=== PATIENT | female | born 2000 | race Caucasian/White ===

== ENCOUNTER 2024-03-23 12:33 | Outpatient (REF) | payer MEDICAID, SELFPAY ==
[2024-03-23 14:00] LABS: Anion Gap 12 (12-20); Blood Urea Nitrogen 17 mg/dL (9-16); Calcium 9.1 mg/dL (8.4-10.2); Carbon Dioxide 27 mmol/L (22-29); Chloride 105 mmol/L (96-108); Estimated Glomerular Filt Rate > 60; Glucose Random 91 mg/dL (60-115); Potassium 3.8 mmol/L (3.3-5.1); Sodium 140 mmol/L (135-145)
[2024-03-23 14:20] LABS: Free T4 (Free Thyroxine) 0.57 ng/dL (0.71-1.85); T4 Thyroxine 3.2 ug/dL (4.5-12.0); Thyroid Stimulating Hormone > 100.00 uIU/mL (0.32-4.0)
[2024-03-24 09:38] LABS: Triiodothyronine T3 Free 2.4 pg/mL (2.3-4.2); Triiodothyronine T3 Total 86 ng/dL (76-181)
== END 2024-03-23 12:34 | disposition home or self-care (01) ==
LOC: HO.HHCL 12:33
PROVIDERS: Visit Provider Internal Medicine
DX: E03.9 Hypothyroidism, unspecified (principal); R73.01 Impaired fasting glucose; E66.813 Obesity, class 3; Z68.42 Body mass index [BMI] 45.0-49.9, adult
CPT/HCPCS: 36415; 80048; 84436; 84439; 84443; 84480; 84481

== ENCOUNTER 2024-05-09 11:02 | Outpatient (REF) | payer MEDICAID, SELFPAY ==
--- OUTSIDE RECORDS SUMMARY | 2024-05-09 12:29 | XMS_ITS | Encounter Summary ---
Author Organization [employer] Address [address] [facility] 7t [place] [address] Care Team Providers Care Licensed Insurance Sales Agent Name Role Phone Oralia Martinez MD Primary Care Provider + Encounter Details Date Type Department Care Team (Latest Contact Info) Description 05/09/2024 Travel Social History Tobacco Use Types Packs/Day Years Used Date Smoking Tobacco: Never Passive Smoke Exposure: Never Smokeless Tobacco: Never Alcohol Use Standard Drinks/Week Comments Never 0 (1 standard drink = 0.6 oz pur e alcohol) Housing Stability Answer Date Recorded What is your housing situation today? I have ian flaherty 05/09/[address] you li ve. Do you have problems with any of the following? None of the above 05/09/2024 Food Insecurity Answer Date Recorded Within the past 12 months, y ou worried that your food would run out before you got money to buy more: Never True 05/09/2024 Within the past 12 months,th e food you bought just didn't last and you didn't have enough money to get more: Never True 01/2025 Transportation Answer Date Recorded In the past 12 months, has l ack of transportation kept you from medical appts, meetings, work or from getting things needed for daily living? No 05/09/2024 Utilities Answer Date Recorded In the past 12 months, has t he electric, gas, oil or water company threatened to shut off services in your home? No 05/09/2024 Depression Answer Date Recorded Patient Health Questionnaire-2 Score 0 05/09/2024 Internet Access Answer Date Recorded Internet Access Q1 No 05/09/2024 Internet Access Q2 I do not want or need it 04/29 Comments No Sex and Gender Information Value Date Recorded Sex Assigned at Female 01/26/2022 10:16 AM EDT Legal Sex Female 10:16 AM EDT Gender Identity Female 01/26/2022 10:16 AM EDT Sexual Orientation Bisexual 01/26/2022 10 :16 AM EDT documented as of this encounter Plan of Treatment Not on file documented as of this encounter Visit Diagnoses Not on filedocumented in this encounter Care Teams Licensed Insurance Sales Agent Relationship Specialty Start Date End Date Oralia Martinez MD [address] [place] [phone] PCP - General Family Medicine 04/11/18 documented as of this encounter
--- OUTSIDE RECORDS SUMMARY | 2024-05-09 12:29 | XMS_ITS | Clinical Summary ---
Author Organization [facility] ity Address [id number] [place] [phone] Care Team Providers Care Property And Casualty Insurance Agent Name Role Phone Unavailable Primary Care Provider Unavailabl e Social History Tobacco Use Types Packs/Day Years Used Date Smoking Tobacco: Never Assessed Comments Unknown Sex and Gender Information Value Date Recorded Sex Assigned at Not on file Legal Sex Female 4:18 AM EST Gender Identity Not on file Sexual Orientation Not on file Plan of Treatment Health Maintenance Due Date Last Done Comments Gonorrhea/Chlamydia Screening 1999 DTaP,Tdap,and Td Vaccines (1 - Tdap) 07/17/2006 HPV Vaccines (1 - 3-dose series) 07/17/2014 Hepatitis B Vaccines (1 of 3 - 19+ 3-dose series) 07/17/2018 Cervical Cancer Screening: P ap Smear 07/17/2020 Depression Screening 03/01/2022 HIV Screening 03/01/2022 Hepatitis C Screening 03/01/2022 Social Influencers of Health Screening 03/01/2022 COVID-19 Vaccine ( - 2023-2 5 season) 2023 Influenza Vaccine (#1) 2023 HIB Vaccines Aged Out No longer eligi ble based on patient's age to complete this topic Hepatitis A Vaccines Aged Out No long er eligible based on patient's age to complete this topic IPV Vaccines Aged Out No longer eligi ble based on patient's age to complete this topic MMR Vaccines Aged Out No longer eligi ble based on patient's age to complete this topic Meningococcal ACWY Vaccine Aged Out N o longer eligible based on patient's age to complete this topic Meningococcal B Vacine Aged Out No lo nger eligible based on patient's age to complete this topic Pneumococcal Vaccine: Pediat rics (0 to 5 Years) and At-Risk Patients (6 to 64 Years) Aged Out No longer eligible b ased on patient's age to complete this topic RSV Immunization Patients Un marcus 20 months Aged Out No longer eligible b ased on patient's age to complete this topic Varicella Vaccines Aged Out No longer eligible based on patient's age to complete this topic
--- OUTSIDE RECORDS SUMMARY | 2024-05-09 12:29 | XMS_ITS | Encounter Summary ---
Author Organization [employer] Address [address] [facility] [address], [place] [address] Care Team Providers Care Grouter Helper Name Role Phone Oralia Martinez MD Primary Care Provider + Reason for Visit * Reason Comments Cough Diarrhea Sore Throat Fever Encounter Details Date Type Department Care Team ([facility] st Contact Info) Description 04/12/2024 2:40 PM EST Office Visit [facility] [address] [place] [phone] rOalia Martinez MD [address] [place], [place] [phone] COVID-19 (Primary Dx); Acute pharyngitis due to other specified organisms Social History Tobacco Use Types Packs/Day Years Used Date Smoking Tobacco: Never Passive Smoke Exposure: Never Smokeless Tobacco: Never Alcohol Use Standard Drinks/Week Comments Never 0 (1 standard drink = 0.6 oz pur e alcohol) Housing Stability Answer Date Recorded What is your housing situation today? I have ian flaherty 04/22/[address] you li ve. Do you have problems with any of the following? None of the above 04/22/2023 Food Insecurity Answer Date Recorded Within the past 12 months, y ou worried that your food would run out before you got money to buy more: Never True 04/22/2023 Within the past 12 months,th e food you bought just didn't last and you didn't have enough money to get more: Never True Transportation Answer Date Recorded In the past 12 months, has l ack of transportation kept you from medical appts, meetings, work or from getting things needed for daily living? No 04/22/2023 Utilities Answer Date Recorded In the past 12 months, has t he electric, gas, oil or water company threatened to shut off services in your home? No 04/22/2023 Comments No Sex and Gender Information Value Date Recorded Sex Assigned at Female 01/26/2022 10:16 AM EDT Legal Sex Female 10:16 AM EDT Gender Identity Female 01/26/2022 10:16 AM EDT Sexual Orientation Bisexual 01/26/2022 10 :16 AM EDT documented as of this encounter Last Filed Vital Signs Vital Sign Reading Time Taken Comments Blood Pressure 105/65 04/12/2024 12:33 PM EST Pulse 90 04/12/2024 12:33 PM EST Temperature 36.9 ??C (98.4 ??F) 04/12/2024 12:[address] Respiratory Rate 18 04/12/2024 12:33 PM EST Oxygen Saturation 97% 04/12/2024 12:33 PM EST RA Inhaled Oxygen Concentration - - Weight 106 kg (234 lb 3.2 oz) 04/12/2024 12:33 P M EST Height 157.5 cm (5' 2 ) 04/12/2024 12:33 PM EST Body Mass Index 42.84 04/12/2024 12:33 PM EST documented in this encounter Progress Notes * Jyoti López RN - 04/12/2024 2:40 PM EST Pt presents to Walk In reporting cough, ST, diarrhea and fevers x2 days, sweating yesterday. Pt reports temperatures yesterday taken 104, 103.3 down to 99 temporally. Pt reports she only took mucinexyesterday. Pt reports she has not taken temperature today, woke up and came to Walk In Center. Pt speaking in full sentences, no respiratory distress noted/reported. No other s/s reported at time of triage. Pt given estimate wait time to see provider. Pt verbalized understanding and reports she will return. RN reviewed ED precautions with pt while awaiting to be seen by provider. Pt verbalized understanding and in agreement. RN advised pt to arrive 20 minutes prior and check in with commercial front load driver staff. Pt verbalized understanding. Pt to F/U as needed. * Oralia Martinez MD - 04/12/2024 2:40 PM EST SUBJECTIVE: Daron Rosas is a 23 y.o. year old female who presents for Walk In Center/URI sxs . Denies recent illness, injury, or hospitalization. Acute Concerns: Co fever, chills, nasal congestin with clear rhinorrhea, sore throat, SERRANO and body aches + diarrhea since yesterday. No known sick contacts. She has mild dry cough starting today, no pleuritic CP or SOB. She hasn't vaped this week. LMP 04/04/23. She lives with her GF who doesn't have any sxs so far, she had covid vax x 2 on 2021, no boosters since. Social History Social History Narrative Not on file Patient Active Problem List Diagnosis Hyperlipidemia Hypothyroidism IFG (impaired fasting glucose) Obesity Telogen effluvium Visual impairment Palpitations Vapes nicotine containing substance Preventative health care Acute pharyngitis due to other specified organisms COVID-19 No family history on file. Review of Systems Constitutional: Positive for chills and fever. Negative for fatigue. HENT: Positive for congestion, rhinorrhea and sore throat. Negative for ear pain, nosebleeds, sinuspressure and trouble swallowing. Eyes: Negative for pain and discharge. Respiratory: Positive for cough. Negative for chest tightness and shortness of breath. Cardiovascular: Negative for chest pain, palpitations and leg swelling. Gastrointestinal: Negative for abdominal pain, blood in stool, constipation, diarrhea and nausea. Endocrine: Negative for polydipsia and polyuria. Genitourinary: Negative for dysuria, frequency, genital sores, pelvic pain and vaginal discharge. Musculoskeletal: Negative for back pain and neck pain. Skin: Negative for rash. Allergic/Immunologic: Negative for environmental allergies. Neurological: Negative for dizziness, seizures, weakness, light-headedness and headaches. Hematological: Negative for adenopathy. Psychiatric/Behavioral: Negative for agitation, behavioral problems, self-injury and suicidal ideas. OBJECTIVE: Vitals: 04/12/24 1233 BP: 105/65 Pulse: 90 Resp: 18 Temp: 98.4 ??F (36.9 ??C) SpO2: 97% Physical Exam HENT: Right Ear: Tympanic membrane and ear canal normal. Left Ear: Tympanic membrane and ear canal normal. Mouth/Throat: Mouth: Mucous membranes are moist. Pharynx: Posterior oropharyngeal erythema present. No oropharyngeal exudate. Eyes: Pupils: Pupils are equal, round, and reactive to light. Cardiovascular: Rate and Rhythm: Regular rhythm. Pulses: Normal pulses. Heart sounds: Normal heart sounds. No murmur heard. Pulmonary: Breath sounds: Normal breath sounds. Abdominal: General: Bowel sounds are normal. Palpations: Abdomen is soft. Tenderness: There is no abdominal tenderness. Musculoskeletal: General: Normal range of motion. Cervical back: Neck supple. Skin: General: Skin is warm. Neurological: General: No focal deficit present. Mental Status: She is alert and oriented to person, place, and time. Psychiatric: Mood and Affect: Mood normal. Behavior: Behavior normal. Office Visit on 04/12/2024 Component Date Value Ref Range Status Rapid COVID Ag 04/12/2024 Positive Final Influenza A 04/12/2024 Negative Negative, Indeterminate Final Influenza B 04/12/2024 Negative Negative, Indeterminate Final Rapid Strep A Screen 04/12/2024 Negative Negative, None Detected Final ASSESSMENT/PLAN Problem List Items Addressed This Visit COVID-19 - Primary Advised re liquid diet today, avoid sugary or dairy drinks, advance to BRAT diet tomorrow as tolerated. Rx Paxlovid x 5 days, [place] interactions module checked, no significant interactions found. Isolation until and she/he will be out of work until then. She can go back to work and to the community with a mask until 04/21/24, if sxs are resolved without other meds for at least 24h. Counseled to let close contacts within the past week, know about dx so they can be tested if needed. Rest (sleep at least 8 hours a night). Wash hands frequently Hydrate with plenty of water. Use saline nose drops + Flonase daily Take Acetaminophen or Ibuprofen as Prn fever or discomfort Gargle with salt water and use throat sprays/lozenges prn Use heated, humidified air or take hot showers. If you have a fever, stay home and away from others (self isolation) until fever-free for 72 hours (temperature should be less than 100??F without medication). RTC if sxs do not improve or she continues with fever by this Wednesday. Acute pharyngitis due to other specified organisms Relevant Orders POCT Rapid Covid-19 BinaxNOW (Completed) POCT Rapid Influenza A WINN ID NOW (Completed) POCT Rapid Influenza B WINN ID NOW (Completed) POCT Rapid Strep A WINN ID NOW (Completed) Follow Up: Current Outpatient Medications on File Prior to Visit Medication Sig Dispense Refill cholecalciferol (Vitamin D-3) 50 MCG (1999 UT) tablet Take by mouth in the morning. levothyroxine (Synthroid, Levoxyl) 75 MCG tablet TAKE 1 TABLET BY MOUTH EVERY DAY 30 tablet 3 No current facility-administered medications on file prior to visit. documented in this encounter Miscellaneous Notes * Assessment & Plan Note - Oralia Martinez MD - 04/12/2024 3:20 PM EST Associated Problem(s): COVID-19 Advised re liquid diet today, avoid sugary or dairy drinks, advance to BRAT diet tomorrow as tolerated. Rx Paxlovid x 5 days, [place] interactions module checked, no significant interactions found. Isolation until and she/he will be out of work until then. She can go back to work and to the community with a mask until 04/21/24, if sxs are resolved without other meds for at least 24h. Counseled to let close contacts within the past week, know about dx so they can be tested if needed. Rest (sleep at least 8 hours a night). Wash hands frequently Hydrate with plenty of water. Use saline nose drops + Flonase daily Take Acetaminophen or Ibuprofen as Prn fever or discomfort Gargle with salt water and use throat sprays/lozenges prn Use heated, humidified air or take hot showers. If you have a fever, stay home and away from others (self isolation) until fever-free for 72 hours (temperature should be less than 100??F without medication). RTC if sxs do not improve or she continues with fever by this Wednesday. documented in this encounter Plan of Treatment Not on file documented as of this encounter Procedures Procedure Name Priority Date/Time Associated Diagnosis Comments POCT INFLUENZA B (ID NOW RAPID MOLECULAR) Routine 04/12/2024 3:06 PM EST Acute pharyngitis due to other specified organisms POCT INFLUENZA A (ID NOW RAPID MOLECULAR) Routine 04/12/2024 3:06 PM EST Acute pharyngitis due to other specified organisms POC WINN ID NOW STREP A Routine 04/12/2024 3:06 PM EST Acute pharyngitis due to other specified organisms POCT RAPID COVID ANTIGEN Routine 04/12/2024 3:06 PM EST Acute pharyngitis due to other specified organisms documented in this encounter Results * POCT Rapid Strep A WINN ID NOW (04/12/2024 3:06 PM EST) Rapid Strep A Screen Negative Negative, None Detected Swab 04/12/2024 3:06 PM EST us Oralia Martinez MD POINT OF CARE TEST ENTER /EDIT ORDERABLES Final Result * POCT Rapid Influenza B WINN ID NOW (04/12/2024 3:06 PM EST) Influenza B Negative Negative, Indeterminate [facility] Swab 04/12/2024 3:06 PM EST Oralia Martinez MD POINT OF CARE TEST ENTER /EDIT ORDERABLES Final Result [facility] [address] [place] [phone] * POCT Rapid Influenza A WINN ID NOW (04/12/2024 3:06 PM EST) Influenza A Negative Negative, Indeterminate [facility] Swab 04/12/2024 3:06 PM EST us Oralia Martinez MD POINT OF CARE TEST ENTER /EDIT ORDERABLES Final Result Performing Organization Address [facility] Co de Phone Number [facility] [address] [place] [phone] * (ABNORMAL) POCT Rapid Covid-19 BinaxNOW (04/12/2024 3:06 PM EST) Rapid COVID Ag Positive [facility] Swab 04/12/2024 3:06 PM EST us Oralia Martinez MD POINT OF CARE TEST ENTER /EDIT ORDERABLES Final Result Performing Organization Address [facility] de Phone Number [facility] [address] [place] [phone] [phone] documented in this encounter Visit Diagnoses Diagnosis COVID-19- Primary Acute pharyngitis due to other specified organisms documented in this encounter Care Teams Grouter Helper Relationship Specialty Start Date End Date Oralia Martinez MD [address] [place] [phone] PCP - General Family Medicine 04/11/18 documented as of this encounter
--- OUTSIDE RECORDS SUMMARY | 2024-05-09 12:29 | XMS_ITS | Encounter Summary ---
Author Organization [email or web address] Address [address] [facility] [address], [place] [address] Care Team Providers Care Door Worker Name Role Phone Oralia Martinez MD Primary Care Provider + Reason for Visit * Reason Onset Date Comments Chart prep 05/05/2024 Encounter Details Date Type Department Care Team ([facility] st Contact Info) Description 05/05/2024 Telephone [facility] MED[facility] [address] [place], [place] [phone] Chani Alva MA Chart prep Social History Tobacco Use Types Packs/Day Years [...] AM EDT documented as of this encounter Miscellaneous Notes * Telephone Encounter - Chani Alva MA - 05/05/2024 3:42 PM EST Chart Prep Labs: not done Images: done Vaccines due: yes Referrals: pending appt Screenings: pap smear Overdue care gaps: SDOH, PHQ-9 documented in this encounter Plan of Treatment Not on file documented as of this encounter Visit Diagnoses Not on filedocumented in this encounter Care Teams Door Worker Relationship Specialty Start Date End Date Oralia Martinez MD [address] [place] [phone] PCP - General Family Medicine 04/11/18 documented as of this encounter
--- OUTSIDE RECORDS SUMMARY | 2024-05-09 12:29 | XMS_ITS | Encounter Summary ---
Author Organization [employer] Address [address] [place] [address] [address], [place] [address] Care Team Providers Care Certified Registered Nurse Anesthetist Name Role Phone Oralia Martinez MD Primary Care Provider + Reason for Visit * Reason Comments Lab Orders Encounter Details Date Type Department Care Team (Latest Contact Info) Description 05/09/2024 10:15 AM EST Office Visit [facility] [address] [place], [place] [phone] Oralia Maritnez MD [address] [place], [place] [phone] Acquired hypothyroidism (Primary Dx); IFG (impaired fasting glucose); Bilateral leg numbness; Class 3 severe obesity due to excess calories without serious comorbidity with body mass index (BMI) of 40.0 to 44.9 in adult (CMS/HCC); Dietary counseling; Exercise counseling Social History Tobacco Use Types Packs/Day Years Used Date Smoking Tobacco: Never Passive Smoke Exposure: Never Smokeless Tobacco: Never Tobacco Cessation:Counseling Given: Not Answered Alcohol Use Standard Drinks/Week Comments Never 0 [...] Sign Reading Time Taken Comments Blood Pressure 110/82 05/09/2024 10:33 AM EST Pulse 88 05/09/2024 10:33 AM EST Temperature 36.6 ??C (97.8 ??F) 05/09/2024 10:[address] Respiratory Rate 12 05/09/2024 10:33 AM EST Oxygen Saturation - - Inhaled Oxygen Concentration - - Weight 107 kg (235 lb 8 oz) 05/09/2024 10:33 AM EST Height 157.5 cm (5' 2 ) 05/09/2024 10:33 AM EST Body Mass Index 43.07 05/09/2024 10:33 AM EST documented in this encounter Miscellaneous Notes * Assessment & Plan Note - Isela Call - 05/09/2024 11:09 AM ESTAssociated Problem(s): Hypothyroidism Pt needs to FU TSH today to adjust Levothyroxine. Continue Levothyroxine 75 mcg per day for now. * Assessment & Plan Note - Isela Call - 05/09/2024 11:08 AM ESTAssociated Problem(s): IFG (impaired fasting glucose) Check RBS and A1c. Counseled re more frequent low calorie/carb meals. Encouraged physical activity as tolerated. FU in 3 months. * Assessment & Plan Note - Isela Call - 05/09/2024 11:07 AM ESTAssociated Problem(s): Bilateral leg numbness Most likely related to hip OA. Advised to use Tylenol, heat to affected area, and I recommended stretching exercises. FU with me in 3 months or earlier PRN. * Assessment & Plan Note - Isela Call - 05/09/2024 11:06 AM ESTAssociated Problem(s): Obesity Will attempt for optimal control of hypothyroidism. Discussed re weight reduction options including exercise, life style modifications, diet. Recommended to decrease soda and sugary beverage consumption, increase protein intake with meals (at least 1 portion of protein with each meal) to assist with satiety, increase dietary fiber Recommended at least 150 min/week of moderate intensity exercise. documented in this encounter Plan of Treatment Scheduled Orders Name Type Priority Associated Diagnoses Orde r Schedule Lipid Panel with Reflex to Direct LDL Lab Routine Acquired hypothyroidism IFG (impaired fasting glucose) Expected: 05/09/2024 (Approximate), Expires: 05/09/2025 TSH with Reflex to Free T4 Lab Routine Acquired hypothyroidism Expected: 05/09/2024 (Approximate), Expires: 05/09/2025 Hemoglobin A1c Lab Routine IFG (impaired fasting glucose) Expected: 05/09/2024 (Approximate), Expires: 05/09/2025 Basic Metabolic Panel Lab Routine IFG (impaired fasting glucose) Expected: 05/09/2024 (Approximate), Expires: 05/09/2025 Vitamin B12/Folate, Serum Panel Lab Routine Bilateral leg numbness Expected: 05/09/2024, Expires: 05/09/2025 Syphilis Screen Lab Routine Bilateral leg numbness Expected: 05/09/2024 (Approximate), Expires: 05/09/2025 Lyme Disease Ab with Reflex to Blot (IgG, IgM) Lab Routine Bilateral leg numbness Expected: 05/09/2024, Expires: 05/09/2025 documented as of this encounter Visit Diagnoses Diagnosis Acquired hypothyroidism- Primary Unspecified hypothyroidism IFG (impaired fasting glucose) Bilateral leg numbness Disturbance of skin sensation Class 3 severe obesity due to excess calories without serious comorbidity with body mass index (BMI) of 40.0 to 44.9 in adult ([facility]) Dietary counseling Dietary surveillance and counseling Exercise counseling documented in this encounter Care Teams Certified Registered Nurse Anesthetist Relationship Specialty Start Date End Date Oralia Martinez MD [address] [place] [phone] PCP - General Family Medicine 04/11/18 documented as of this encounter
--- OUTSIDE RECORDS SUMMARY | 2024-05-09 12:29 | XMS_ITS | Encounter Summary ---
Author Organization [employer] Address [address] [facility] [address] [address] Care Team Providers Care Java Architect Name Role Phone Oralia Martinez MD Primary Care Provider + Reason for Visit * Reason Onset Date Comments Med Refill 04/27/2024 Encounter Details Date Type Department Care Team ([facility] st Contact Info) Description 04/27/2024 Telephone [facility] MEDICINE [address] [place], [place] [phone] Oralia Martinez MD [address] [place], [place] [phone] Med Refill Social History Tobacco Use Types Packs/Day Years [...] encounter Miscellaneous Notes * Telephone Encounter - Naila Goodwin LPN - 04/27/2024 2:11 PM EST Script was sent to [facility] on 03/27/24 #30 with 3 refills. * Telephone Encounter - Greta Smith - 04/27/2024 1:56 PM EST TC from pt requesting medication refill. Medications needing refill : levothyroxine (Synthroid, Levoxyl) 75 MCG tablet To be sent to: [facility] pharmacy documented in this encounter Plan of Treatment Not on file documented as of this encounter Visit Diagnoses Not on filedocumented in this encounter Care Teams Java Architect Relationship Specialty Start Date End Date Oralia Martinez MD [address] [place] [phone] PCP - General Family Medicine 04/11/18 documented as of this encounter
--- OUTSIDE RECORDS SUMMARY | 2024-05-09 12:29 | XMS_ITS | Clinical Summary ---
Author Organization [employer] Address [address] [place] [address] [address] [place] [address] Care Team Providers Care Robotics Application Engineer Name Role Phone Oralia Martinez MD Primary Care Provider + Allergies No known active allergies Medications cholecalciferol (Vitamin D-3) 50 MCG (1999 UT) tablet Take by mouth in the morning. 3 Active levothyroxine (Synthroid, Levoxyl) 75 MCG tablet TAKE 1 TABLET BY MOUTH EVERY DAY 30 tablet 3 4 Active acetaminophen (Tylenol Extra Strength) 500 MG tablet Take 1 tablet (500 mg) by mouth every 6 (six) hours if needed for mild pain. 120 tablet 5 05/12/19 25 Active fluticasone (Flonase) 50 MCG/ACT nasal spray Administer 1 spray into each nostril Once per day. 16 g 5 05/12/19 25 Active Nirmatrelvir&Ri tonavir 300/100 (Paxlovid, 300/100,) 20 x 150 MG & 10 x 100MG tablet therapy pack Take 3 tablets by mouth 2 times daily for 5 days. 30 each 5 04/17/19 25 Active Problems Problem Noted Date Diagnosed Date Bilateral leg numbness 05/09/2024 Assessment & Plan (05/09/2024 11:07 AM EST): Most likely related to hip OA. Advised to use Tylenol, heat to affected area, and I recommended stretching exercises. FU with me in 3 months or earlier PRN. Acute pharyngitis due to other specified organis ms 04/12/2024 COVID-19 04/12/2024 Assessment & Plan (04/12/2024 3:23 PM EST): Advised re liquid diet today, avoid sugary or dairy drinks, advance to BRAT diet tomorrow as tolerated. Rx Paxlovid x 5 days, [place] interactions module checked, no significant interactions found. [...] she continues with fever by this Wednesday. Palpitations 03/23/2024 Assessment & Plan (03/23/2024 1:39 PM EST): Unclear if related to conditioning, overweight, or Hypothyroidism. Order labs. Advised regarding weight reduction and gradually start doing exercise. FU in 6-8 weeks. Vapes nicotine containing substance 03/23/2024 Assessment & Plan (03/23/2024 1:41 PM EST): Advised to stop vaping and using nicotine replacement therapy, she declined at this time. Order PFTs once she is set with her insurance. Preventative health care 03/23/2024 Assessment & Plan (03/23/2024 2:29 PM EST): Will schedule Pap smear once she is set with her insurance. Pt agreed to receive Influenza immunization today, will FU with all other immunizations at a later time. Pt will be referred to eye clinic. IFG (impaired fasting glucose) 05/13/2022 Assessment & Plan (05/09/2024 11:08 AM EST): Check RBS and A1c. Counseled re more frequent low calorie/carb meals. Encouraged physical activity as tolerated. FU in 3 months. Assessment & Plan (03/23/2024 1:37 PM EST): Controlled. A1c is at goal. Counseled re more frequent low calorie/carb meals. Encouraged physical activity as tolerated. Check FBS. 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 I will check labs and FU at next appointment. Hypothyroidism 12/22/2011 Assessment & Plan (05/09/2024 11:09 AM EST): Pt needs to FU TSH today to adjust Levothyroxine. Continue Levothyroxine 75 mcg per day for now. Assessment & Plan (03/23/2024 1:36 PM EST): Most likely uncontrolled, has not taking medications in 1+ year. Restart Levothyroxine 25 mcg, order labs today. Obesity 10/14/2011 Assessment & Plan (05/09/2024 11:06 AM EST): Will attempt for optimal control of hypothyroidism. Discussed re weight reduction options including exercise, life style modifications, diet. Recommended to decrease soda and sugary beverage consumption, increase protein intake with meals (at least 1 portion of protein with each meal) to assist with satiety, increase dietary fiber Recommended at least 150 min/week of moderate intensity exercise. Assessment & Plan (03/23/2024 1:38 PM EST): Discussed re weight reduction options including exercise, life style modifications, and diet. Recommended to decrease soda and sugary beverage consumption, increase protein intake with meals (at least 1 portion of protein with each meal) to assist with satiety, increase dietary fiber Recommended at least 150 min/week of moderate intensity exercise. Resolved Problems Problem Noted Date Diagnosed Date Resolved Date Candidiasis of skin 05/13/2022 07/10/19 Right lower quadrant pain 05/13/2022 Encounters Date Type Department Care Team Description 05/09/2024 10:15 AM EST Office Visit [facility] [address] [place] [phone] Oralia Martinez MD Acquired hypothyroidism (Primary Dx); IFG (impaired fasting glucose); Bilateral leg numbness; Class 3 severe obesity due to excess calories without serious comorbidity with body mass index (BMI) of 40.0 to 44.9 in adult ([facility]); Dietary counseling; Exercise counseling 05/09/2024 Travel 05/05/[address] [address] Chani Alva [place] Chart prep 04/27/[address] [address] Oralia Martinez MD Med Refill 04/12/2024 2:40 PM EST Office Visit [facility] [address] [place] [phone] Oralia Martinez MD COVID-19 (Primary Dx); Acute pharyngitis due to other specified organisms 04/12/2024 Travel 03/23/2024 9:45 AM EST Office Visit [address] [phone] Oralia Martinez MD Acquired hypothyroidism (Primary Dx); IFG (impaired fasting glucose); Mixed hyperlipidemia; Class 3 severe obesity due to excess calories with serious comorbidity and body mass index (BMI) of 45.0 to 49.9 in adult ([facility]); Palpitations; Vapes nicotine containing substance; Preventative health care; Dietary counseling; Exercise counseling; Encounter for immunization 03/23/[address] [phone] Patricia Lorenzana RN Results 03/23/2024 Travel 03/23/[address] [address] Oralia Martinez MD No Show 03/14/2024 Telephone [facility] [address] [place] [address] Oralia Martinez MD insurance 03/14/2024 Refill [facility] [address] [place], [place] [phone] Oralia Martinez MD 03/13/2024 Patient Outreach [facility] [address] [place] [address] Oralia Martinez MD Pre-visit Planning ([facility] screening completed on 04/22/2023) from Last 3 Months Immunizations Name Administration Dates Next Due DTaP 03/06/2004, 1,06/26/2000,11/17,1999 HPV, Quadrivalent 12/22/2011,10/14/2011,12/12/19 11 Hep A, ped/adol, 2 dose 01/30/2013,11/27/2009 Hep B, Adolescent or Pediatric 07/17/2005,2000,1999 Hib (HbOC) 10/19/2000, 1,1999,10/06 IPV 03/06/2004, 1,1999,10/06 Influenza live intranasal qu adrivalent LIAV4 01/04/2014 Influenza, Split (incl. sosa fied surface antigen) 12/22/2011 Influenza, live, intranasal 01/30/2013, 0 Influenza, seasonal, injecta ble, preservative free 03/23/2024 MMR 03/06/2004,08/03/2000 Meningococcal MCV4P [id number]-135 11/21/2015 Meningococcal MPSV4 12/11/2010 Pfizer Covid-19 Vaccine 12+ nicky-sucrose (Cooper Cap) 08/07/2021,07/01/2021 Pneumococcal Conjugate PCV 7 02/08/2001,10/20/19,1999 Tdap 12/11/2010 Varicella 12/16/2007,08/03/2000 Social History Tobacco Use Types Packs/Day Years [...] Orientation Bisexual 01/26/2022 10 :16 AM EDT Last Filed Vital Signs Vital Sign Reading Time Taken Comments Blood Pressure 110/82 05/09/2024 10:33 AM EST Pulse 88 05/09/2024 10:33 AM EST Temperature 36.6 ??C (97.8 ??F) 05/09/2024 10:[address] Respiratory Rate 12 05/09/2024 10:33 AM EST Oxygen Saturation 97% 04/12/2024 12:33 PM EST RA Inhaled Oxygen Concentration - - Weight 107 kg (235 lb 8 oz) 05/09/2024 10:33 AM EST Height 157.5 cm (5' 2 ) 05/09/2024 10:33 AM EST Body Mass Index 43.07 05/09/2024 10:33 AM EST Plan of Treatment Health Maintenance Due Date Last Done Comments HIV Screening 1999 Alcohol/Substance Use Screening 2011 Family Planning (PISQ) 07/17/2014 Hepatitis C Screening 07/17/2017 Pap Smear 07/17/2020 DTaP/Tdap/Td Vaccines (7 - Td or Tdap) 12/11/2020 12/11/2010, 03/06/2004, 02/08/2001, Additional history exists COVID-19 Vaccine ( season) 2023 08/07/2021, 07/01/2021 Depression Screening 05/09/2025 05/09/2024, 05/09/19 SDOH Screening 05/09/2025 05/09/2024 Tobacco Screening 05/09/2025 05/09/2024 Lipid Panel 05/13/2027 05/13/2022 Zoster Vaccines (1 of 2) 07/17/2049 RSV Patients and Patients Aged 60 years or older (1 - 1-dose 75+ series) 07/17/2074 HIB Vaccines Completed 10/19/2000, 05/29, 1999, Additional history exists Pneumococcal Vaccine: Pediatrics (0 to 5 Years) and At-Risk Patients (6 to 49) Years) Aged Out 02/08/2001, 10/19/2000, 1999, Additional history exists No longer eligible based on patient's age to complete this topic IPV Vaccines Completed 03/06/2004, 05/29, 1999, Additional history exists Hepatitis B Vaccines Completed 07/17/2005, 06/26/2000, 1999 HPV Vaccines Completed 12/22/2011, 09/26, 12/11/2010 Hepatitis A Vaccines Completed 01/30/2013, 11/28/19 10 Meningococcal Vaccine Completed 11/21/2015, 011 Influenza Vaccine Completed 03/23/2024, , 01/30/2013, Additional history exists RSV under 20 months Aged Out No longe r eligible based on patient's age to complete this topic Rotavirus Vaccines Aged Out No longer eligible based on patient's age to complete this topic Procedures Procedure Name Priority Date/Time Associated Diagnosis Comments POC WINN ID NOW STREP A Routine 04/12/2024 3:06 PM EST Acute pharyngitis due to other specified organisms POCT INFLUENZA B (ID NOW RAPID MOLECULAR) Routine 04/12/2024 3:06 PM EST Acute pharyngitis due to other specified organisms POCT INFLUENZA A (ID NOW RAPID MOLECULAR) Routine 04/12/2024 3:06 PM EST Acute pharyngitis due to other specified organisms POCT RAPID COVID ANTIGEN Routine 04/12/2024 3:06 PM EST Acute pharyngitis due to other specified organisms BASIC METABOLIC PANEL Routine 03/23/2024 12:36 PM EST Acquired hypothyroidism IFG (impaired fasting glucose) Class 3 severe obesity due to excess calories with serious comorbidity and body mass index (BMI) of 45.0 to 49.9 in adult ([facility]) T4 (THYROXINE), TOTAL Routine 03/23/2024 12:36 PM EST Acquired hypothyroidism TSH Routine 03/23/2024 12:36 PM EST Acquired hypothyroidism T4, FREE Routine 03/23/2024 12:36 PM EST Acquired hypothyroidism T3, TOTAL Routine 03/23/2024 12:36 PM EST Acquired hypothyroidism T3, FREE Routine 03/23/2024 12:36 PM EST Acquired hypothyroidism LIPID PANEL, STANDARD Routine 05/13/2022 10:20 AM EST from Last 3 Months or Most Recently Relevant to Health Maintenance Results * POCT Rapid Influenza B WINN ID NOW (04/12/2024 3:06 PM EST) Influenza B Negative Negative, Indeterminate [facility] Swab 04/12/2024 3:06 PM EST us Oralia Martinez MD POINT OF CARE TEST ENTER /EDIT ORDERABLES Final Result Performing Organization Address [facility]/ZIP Co de Phone Number [facility] [address] [place] [phone] * POCT Rapid Influenza A WINN ID NOW (04/12/2024 3:06 PM EST) [facility] Influenza A Negative Negative, Indeterminate [facility] Swab 04/12/2024 3:06 PM EST Oralia Martinez MD POINT OF CARE TEST ENTER /EDIT ORDERABLES Final Result Performing Organization Address [facility] Co de Phone Number [facility] [address] [place] [phone] * POCT Rapid Strep A WINN ID NOW (04/12/2024 3:06 PM EST) [facility] Rapid Strep A Screen Negative Negative, None Detected Swab 04/12/2024 3:06 PM EST Oralia Martinez MD POINT OF CARE TEST ENTER /EDIT ORDERABLES Final Result * (ABNORMAL) POCT Rapid Covid-19 BinaxNOW (04/12/2024 3:06 PM EST) [facility] Rapid COVID Ag Positive [facility] Swab 04/12/2024 3:06 PM EST Oralia Martinez MD POINT OF CARE TEST ENTER /EDIT ORDERABLES Final Result Performing Organization Address [facility] Co de Phone Number [facility] [address] [place] [phone] * T3, Free (03/23/2024 12:36 PM EST) [facility] T3, Free 2.4 2.3 - 4.2 pg/mL [facility] Comment:THIS TEST WAS PERFOR MED AT:[facility] [address] [phone] EDOUARD MD Blood Venous blood specimen / Unknown 03/23/2024 12:36 PM EST 03/23/2024 1:05 PM EST Oralia Martinez MD LAB BLOOD ORDERABLES Fin al Result Performing Organization Address [facility] Co de Phone Number [facility] [address] [place] [phone] * T3, Total (03/23/2024 12:36 PM EST) T3, Total 86 76 - 181 ng/dL [facility] Comment:THIS TEST WAS PERFOR MED AT:[facility] [address] [phone] EDOUARD MD Blood Venous blood specimen / Unknown 03/23/2024 12:36 PM EST 03/23/2024 1:05 PM EST Oralia Martinez MD LAB BLOOD ORDERABLES Fin al Result Performing Organization Address [facility] Number [facility] [address] [place] [phone] * (ABNORMAL) TSH (03/23/2024 12:36 PM EST) Thyroid Stimulating Hormone >100.00(H) 0.32 - 4.0 uIU/mL [facility] Comment:Note: A sustained TS H level above 2.5 uIU/mL may warrant further investigation. TSH 3rd Generation ([facility]) Blood Venous blood specimen / Unknown 03/23/2024 12:36 PM EST 03/23/2024 1:02 PM EST Oralia Martinez MD LAB BLOOD ORDERABLES Fin al Result Performing Organization Address [facility] Co fl Phone Number [facility] [address] [place] [phone] * (ABNORMAL) T4, Free (03/23/2024 12:36 PM EST) Pathologist [facility] Free T4 (Free Thyroxine) 0.57(L) 0.71 - 1.85 ng/dL [facility] Blood Venous blood specimen / Unknown 03/23/2024 12:36 PM EST 03/23/2024 1:02 PM EST Oralia Martinez MD LAB BLOOD ORDERABLES Fin al Result Performing Organization Address [facility]/ZIP Co de Phone Number [facility] [address] [place] [phone] * (ABNORMAL) T4 (Thyroxine), Total (03/23/2024 12:36 PM EST) [facility] T4 Thyroxine 3.2(L) 4.5 - 12.0 ug/dL [facility] Blood Venous blood specimen / Unknown 03/23/2024 12:36 PM EST 03/23/2024 1:02 PM EST Oralia Martinez MD LAB BLOOD ORDERABLES Fin al Result Performing Organization Address [facility]/ZIP Co de Phone Number [facility] [address] [place] [phone] * (ABNORMAL) Basic Metabolic Panel (03/23/2024 12:36 PM EST) [facility] Sodium 140 135 - 145 mmol/L [facility] Potassium 3.8 3.3 - 5.1 mmol/L [facility] Chloride 105 96 - 108 mmol/L [facility] Carbon Dioxide 27 22 - 29 mmol/L [facility] Anion Gap 12 12 - 20 [facility] Urea Nitrogen (BUN) 17(H) 9 - 16 mg/dL [facility] Creatinine, Serum 0.79 0.5 - 1.4 mg/dL [facility] Estimated Glomerular Filt Rate >60 [facility] Comment:Chronic Kidney Disea se: Estimated GFR < 60 mL/min/[id number] Kidney Disease: Estimated GFR < 15 mL/min/1.73m2 Glucose 91 60 - 115 mg/dL [facility] Calcium 9.1 8.4 - 10.2 mg/dL [facility] Blood Venous blood specimen / Unknown 03/23/2024 12:36 PM EST 03/23/2024 1:02 PM EST us Oralia Martinez MD LAB BLOOD ORDERABLES Fin al Result [facility] [address] [place], [place] [phone] * (ABNORMAL) Lipid Panel, Standard (05/13/2022 10:20 AM EST) Cholesterol, Total 216(H) <200 mg/dL [facility] [place] [email or web address] HDL Cholesterol 57 > OR = 50 mg/dL [facility] [place] [email or web address] Triglycerides 125 <150 mg/dL [facility] [place] [email or web address] LDL Cholesterol 135(H) mg/dL (calc) [facility] [place] [email or web address] Comment: Reference range: <100 Desirable range <100 mg/dL for primary prevention; ?? <70 mg/dL for patients with CHD or diabetic patients with > or = 2 CHD risk factors. LDL-C is now calculated using the Brad-Олег calculation, which is a validated novel method providing better accuracy than the Friedewald equation in the estimation of LDL-C. Brad BLACKBURN et al. DAYANNA. 2013;310(19): 7338-3507 (http://education.[employer]/faq/TKU576) Chol/HDLC Ratio 3.8 <5.0 (calc) [facility] [place] [email or web address] Non-HDL Cholesterol 159(H) <130 mg/dL (calc) [facility] [place] [email or web address] Comment: For patients with diabetes plus 1 major ASCVD risk factor, treating to a non-HDL-C goal of <100 mg/dL (LDL-C of <70 mg/dL) is considered a therapeutic option. 05/13/2022 10:2 0 AM EST 05/13/2022 10:21 AM EST Narrative [facility] - 05/13/2022 10:02 PM EST FASTING:YES FASTING: YES us Oralia Martinez MD LAB BLOOD ORDERABLES Fin al Result [facility] [address] [place] [phone] [facility] [address], ([address]) [place] [phone] from Last 3 Months or Most Recently Relevant to Health Maintenance Insurance Care Teams Robotics Application Engineer Relationship Specialty Start Date End Date Oralia Martinez MD [address] [place] [phone] PCP - General Family Medicine 04/11/18
--- OUTSIDE RECORDS SUMMARY | 2024-05-09 12:29 | XMS_ITS | Encounter Summary ---
Author Organization [employer] Address [address] [place] [address] Care Team Providers Care Insurance Instructor Name Role Phone Oralia Martinez MD Primary Care Provider + Encounter Details Date Type Department Care Team (Latest Contact Info) Description 04/12/2024 Travel Social History Tobacco Use Types Packs/Day Years Used Date Smoking Tobacco: Never Passive Smoke Exposure: Never Smokeless Tobacco: Never Alcohol Use Standard Drinks/Week Comments Never 0 (1 standard drink = 0.6 oz pur e alcohol) Housing Stability Answer Date Recorded What is your housing situation today? I have iandavid flaherty 04/22/[address] you [...] on filedocumented in this encounter Care Teams Insurance Instructor Relationship Specialty Start Date End Date Oralia Martinez MD [address] [place] [phone] PCP - General Family Medicine 04/11/18 documented as of this encounter
--- OUTSIDE RECORDS SUMMARY | 2024-05-09 12:29 | XMS_ITS | Encounter Summary ---
Author Organization [employer] Address [address] [place] [id number] Care Team Providers Care Welding Production Supervisor Name Role Phone Oralia Martinez MD Primary Care Provider + Encounter Details Date Type Department Care Team ([facility] st Contact Info) Description 04/14/2022 Telephone [facility] [address] [place], [place] [phone] Oralia Martinez MD [address] [place], [place] [phone] Social History Tobacco Use Types Packs/Day Years [...] on filedocumented in this encounter Care Teams Welding Production Supervisor Relationship Specialty Start Date End Date Oralia Martinez MD [address] [place] [address] PCP - General Family Medicine 04/11/18 documented as of this encounter
[2024-05-09 13:37] LABS: Estimated Average Glucose 117 mg/dL; Hemoglobin A1C 118.4233 umol/L; Hemoglobin A1c % 5.7 % (<6.0); Total Hemoglobin (HGBA1C) 3071.4311 umol/L
[2024-05-09 14:45] LABS: Folate 5.3 ng/mL (> or = 4.0); Vitamin B12 244 pg/mL (200-900)
[2024-05-09 15:20] LABS: Anion Gap 11 (12-20); Blood Urea Nitrogen 13 mg/dL (9-16); Calcium 8.9 mg/dL (8.4-10.2); Carbon Dioxide 25 mmol/L (22-29); Chloride 108 mmol/L (96-108); Cholesterol 232 mg/dL (<200); Estimated Glomerular Filt Rate > 60; Glucose Random 88 mg/dL (60-115); HDL Cholesterol 40 mg/dL (>40); LDL Cholesterol Calculated 141 mg/dL (<100); Potassium 3.9 mmol/L (3.3-5.1); Sodium 140 mmol/L (135-145); Triglycerides 259 mg/dL (<150)
[2024-05-09 15:43] LABS: TSH reflex Free T4 76.92 uIU/mL (0.32-4.0)
[2024-05-09 17:07] LABS: Reflex LDLD? No
[2024-05-09 17:30] LABS: Free T4 (Free Thyroxine) 0.79 ng/dL (0.71-1.85)
[2024-05-10 03:42] LABS: Syphilis Screen Nonreactive (Nonreactive)
[2024-05-11 02:49] LABS: Lyme Abs Screen <0.90 index
== END 2024-05-09 11:03 | disposition home or self-care (01) ==
LOC: HO.HHCL 11:02
PROVIDERS: Visit Provider Internal Medicine
DX: R73.01 Impaired fasting glucose (principal); R20.0 Anesthesia of skin; E03.9 Hypothyroidism, unspecified
CPT/HCPCS: 36415; 80048; 80061; 82607; 82746; 83036; 84439; 84443; 86617; 86618; 86780